=== PATIENT | male | born 1955 | race Caucasian/White ===

== ENCOUNTER 2019-06-20 08:28 | Day surgery (SDC) | payer OTHER ==
[~2019-06-20 08:28] MED LIST: Midazolam 1 MG/ML 2 ML SDV ONE; fentaNYL 100 MCG/2 ML SDV ONE
[2019-06-20] MEDS ORDERED: fentaNYL 100 MCG/2 ML SDV IV ONE ×6 (08:29→10:05)
[2019-06-20] MEDS ORDERED: Dextrose 5%-0.45% NaCl 1,000 ML IV SCH (08:30)
[2019-06-20] MEDS ORDERED: Sodium Chloride 0.9% 10 ML Syringe FLUSH SCH (08:30)
[2019-06-20] MEDS ORDERED: Benzocaine/Docusate Sodium 20-283 MG/5 ML Enema RECTAL ONE (08:45)
[2019-06-20] MEDS ORDERED: Midazolam 1 MG/ML 2 ML SDV IV ONE ×4 (09:54→09:58)
--- NOTE | 2019-06-20 12:35 | OR ---
DATE: 06/20/2019 PREOPERATIVE DIAGNOSIS: Chronic left lower quadrant abdominal pain. POSTOPERATIVE DIAGNOSIS: Chronic left lower quadrant abdominal pain. PROCEDURE: Total colonoscopy with mucosal biopsies, sigmoid x4. ANESTHESIA: Conscious sedation. SPECIMEN: Sigmoid biopsy. OPERATIVE FINDINGS: Normal colonoscopy with some scattered diverticula throughout the colon and a thick non-expandable sigmoid colon. RECOMMENDATIONS: I am not sure this would explain the patient's left lower quadrant pain, but it is in the same area. I did multiple biopsies of the sigmoid area and will have to wait for pathology to see if it shows anything. Other recommendation would be to send him off to a larger medical center for a GI and Surgery evaluation. INDICATION FOR PROCEDURE: This 64-year-old male has a significant left lower quadrant abdominal pain. PROCEDURE IN DETAIL: After adequate preparation, a colonoscope was inserted into the rectum. This was passed up easily up to the lower sigmoid colon. At that point, I actually could not get the sigmoid colon to expand. I could see the luminal opening and was able to advance the scope along this gingerly, however, the colon just simply would not expand. This went from about 20 cm to 35 cm or so and past that point the colon completely opened up and was widely patent as in a normal view. This then was able to be advanced all the way to the cecum. Along the pathway of this scope, there were multiple diverticula throughout the transverse and right colon. Ileocecal valve was identified with effluent and air coming through the valve. The bowel prep, even though only took half of it, was adequate. On withdrawal of the scope in the transverse and ascending colon, there really were no abnormalities other than the diverticula, but in the left colon again, as I passed the scope down through this, I could not again distend whatsoever the colon. This did not represent a stricture or mass formation. It just could not distend the colon. I did multiple biopsies of the mucosa in this area. Once I got down to below 20 cm of the colon, the upper rectum exam was all normal. Air was suctioned from the rectum and the scope removed. [facility] /[id number] CC: Miriam Lopez, [facility]
== END 2019-06-20 11:50 | disposition home or self-care (01) ==
LOC: DL.ENDO 08:28
PROVIDERS: ATTEND Surgery
DX: K57.30 Diverticulosis of large intestine without perforation or abscess without bleeding (principal); K63.89 Other specified diseases of intestine; K59.09 Other constipation; Z79.82 Long term (current) use of aspirin; Z79.899 Other long term (current) drug therapy
CPT/HCPCS: 45380; J3010; J7042; J2250

== ENCOUNTER 2019-08-10 14:58 | Emergency (ER) | payer MEDICAID, MEDICARE, OTHER ==
[2019-08-10] MEDS ORDERED: Sodium Chloride 0.9% 10 ML Syringe FLUSH PRN ×2 (15:39→15:41)
[2019-08-10] MEDS ORDERED: Sodium Chloride 0.9% 1,000 ML IV ONE ×3 (15:40→17:42)
[2019-08-10] MEDS ORDERED: Ondansetron 4 MG/2 ML SDV IV ONE ×2 (15:40→17:28)
[2019-08-10] MEDS ORDERED: Atropine/Diphenoxylate 0.025-2.5 MG Tab PO ONE (15:40)
[2019-08-10] MEDS ORDERED: Dicyclomine 20 MG/2 ML SDV IM ONE (15:41)
[2019-08-10] MEDS ORDERED: Piperacillin/Tazobactam 3.375 GM in Sodium Chloride 0.9% 100 ML IV ONE (16:04)
[2019-08-10 16:15] LABS: ANION GAP 19.1; CHLORIDE,CL 98 mmol/L (101-111); SODIUM,NA 134 mmol/L (135-145)
[2019-08-10] MEDS ORDERED: HYDROmorphone 1 MG/ML Syringe IVPUSH ONE (17:28)
--- NOTE | 2019-08-10 17:44 | EDM.PDOC ---
Scribed by Kassandra Molina 08/10/19 2620 for Jaswinder Mann MD ED HPI GENERAL MEDICAL PROBLEM - General Chief Complaint: General Time Seen by Provider: 08/10/19 15:25 Source of Information: Reports: Patient, EMS, EMS Notes Reviewed, RN, RN Notes Reviewed History Limitations: Reports: No Limitations - History of Present Illness INITIAL COMMENTS - FREE TEXT/NARRATIVE: Patient presents to ER by [facility] with c/o abdominal pain with uncontrollable diarrhea, nausea, and vomiting. Patient had barium CT scan ( Abd/Pelvis) 08/09/19 and has since been having diarrhea and abdominal cramping. Pt states they told him he had a partial bowel obstruction and colitis. CT report from yesterday notes left descending colitis but no obstruction. He has sigmoidoscopy scheduled with Dr. Mcknight in a few days but apparently it was cancelled and he was referred to the [facility] instead. Pt rates the pain 8/10. Nothing alleviates the pain. Movement and eating makes the pain and diarrhea worse. Onset: Gradual Duration: Constant, Getting Worse Location: Reports: Abdomen Quality: Reports: Ache, Other (Cramping) Severity: Severe Improves with: Reports: None Worsens with: Reports: Eating, Movement Associated Symptoms: Reports: No Other Symptoms Middle Abdomen Pain Score (Numeric/FACES): 6 - Related Data Allergies Allergy/AdvReac Type Severity Reaction Status Date / Time Sulfa (Sulfonamide Allergy Cannot Verified 06/20/19 08:39 Antibiotics) Remember Home Meds: Home Meds Omeprazole 20 mg PO DAILY 04/02/18 [History] Aspirin 81 mg PO DAILY 02/05/19 [History] Cholecalciferol (Vitamin D3) [Vitamin D3] 2,000 units PO DAILY 02/05/19 [History ] atorvaSTATin Calcium [Lipitor] 10 mg PO BEDTIME 02/05/19 [History] hydroCHLOROthiazide [Hydrochlorothiazide] 25 mg PO DAILY 02/05/19 [History] Lisinopril [Prinivil] 10 mg PO DAILY 05/24/19 [History] Past Medical History HEENT History: Reports: Impaired Vision Cardiovascular History: Reports: High Cholesterol, Hypertension Respiratory History: Reports: None Gastrointestinal History: Reports: Diverticulosis, GERD Genitourinary History: Reports: Prostate Disorder, Renal Calculus, Other (See Below) Other Genitourinary History: ERECTILE DYSFUNCTION Musculoskeletal History: Reports: Arthritis, Back Pain, Chronic, Neck Pain, Chronic, Other (See Below) Other Musculoskeletal History: SPINOCEREBELLAR ATAXIA; CERVICALGIA; ANTERIOR SOFT STISSUE IMPINGEMENT Neurological History: Reports: Neuropathy, Peripheral, Other (See Below) Other Neuro History: RESTLESS LEG SYNDROME; RIGHT ULNAR NEUROPATHY; ABNORMALITY OF GAIT Psychiatric History: Reports: Addiction, Anxiety, Panic Attack, Other (See Below ) Other Psychiatric History: INSOMNIA; ALCOHOL ABUSE; TOBACCO DEPENDENCE; AGORAPHOBIA Endocrine/Metabolic History: Reports: Vitamin D Deficiency Hematologic History: Reports: None Immunologic History: Reports: None Oncologic (Cancer) History: Reports: None Dermatologic History: Reports: Seborrheic Dermatitis - Infectious Disease History Infectious Disease History: Reports: Chicken Pox, Mumps - Past Surgical History Head Surgeries/Procedures: Reports: None HEENT Surgical History: Reports: Adenoidectomy, Tonsillectomy Cardiovascular Surgical History: Reports: None Respiratory Surgical History: Reports: None GI Surgical History: Reports: Colonoscopy, Other (See Below) Other GI Surgeries/Procedures: FLEXIBLE SIGMOIDOSCOPY; ABDOMINAL PAIN Male Surgical History: Reports: None Endocrine Surgical History: Reports: None Neurological Surgical History: Reports: None Musculoskeletal Surgical History: Reports: None Oncologic Surgical History: Reports: None Dermatological Surgical History: Reports: None Social & Family History - Family History Family Medical History: Noncontributory - Caffeine Use Caffeine Use: Reports: Coffee, Energy Drinks, Soda Other Caffeine Use: AVERAGE OF 1 POT COFFEE DAILY, 1 ENERGY DRINK - Living Situation & Occupation Living situation: Reports: , with Spouse ED ROS GENERAL - Review of Systems Review Of Systems: Comprehensive ROS is negative, except as noted in HPI. ED EXAM, GENERAL - Physical Exam Exam: See Below Exam Limited By: No Limitations General Appearance: Alert, Anxious, Mild Distress (Due to pain and fecal incontinence), Other (Acutely ill appearing) Eye Exam: Bilateral Eye: Normal Inspection (No scleral icterus) Nose: Normal Inspection, Normal Mucosa, No Blood Throat/Mouth: Normal Lips, Normal Oropharynx, Normal Voice, No Airway Compromise , Other (Very dry oral mucosa) Head: Atraumatic, Normocephalic Neck: Normal Inspection, Supple, Non-Tender, Full Range of Motion Respiratory/Chest: No Respiratory Distress, Lungs Clear, Normal Breath Sounds, No Accessory Muscle Use, Chest Non-Tender Cardiovascular: Regular Rate, Rhythm, No Edema, Tachycardia GI/Abdominal: Soft, No Organomegaly, No Distention, Guarding (at left abdomen), Tender (generalized abdominal tenderness, worse at LUQ and LLQ), Abnormal Bowel Sounds (Hyperactive bowel sounds). No: Rigid, Rebound (Male) Exam: Deferred Rectal (Males) Exam: Deferred Back Exam: Normal Inspection Extremities: Normal Inspection Neurological: Alert, Oriented, CN II-XII Intact, Normal Cognition, No Motor/ Sensory Deficits Psychiatric: Anxious Skin Exam: Warm, Dry, Intact, Pallor Course - Vital Signs Last Recorded V/S: Last Vital Signs Temp 97.6 F 08/10/19 16:55 Pulse 84 08/10/19 16:55 Resp 14 08/10/19 16:55 BP 90/63 08/10/19 16:55 Pulse Ox 99 08/10/19 16:55 - Orders/Labs/Meds Orders: Active Orders 24 hr Category Date Time Status Peripheral IV Care [RC] . DIRECTED Care 08/10/19 15:39 Active Peripheral IV Care [RC] . DIRECTED Care 08/10/19 15:41 Active CBC WITH AUTO DIFF [HEME] Stat Lab 08/10/19 15:34 Results CULTURE URINE [RM] Stat Lab 08/10/19 16:28 Received MANUAL DIFFERENTIAL QA/NC [HEME] Stat Lab 08/10/19 15:34 Results Sodium Chloride 0.9% [Saline Flush] Med 08/10/19 15:39 Active 10 ml FLUSH ASDIRECTED PRN Sodium Chloride 0.9% [Saline Flush] Med 08/10/19 15:41 Active 10 ml FLUSH ASDIRECTED PRN Peripheral IV Insertion Adult [OM.PC] Stat Oth 08/10/19 15:39 Ordered Peripheral IV Insertion Adult [OM.PC] Stat Oth 08/10/19 15:40 Ordered Medication Orders Sodium Chloride (Saline Flush) 10 ml FLUSH ASDIRECTED PRN PRN Reason: Keep Vein Open Last Admin: 08/10/19 15:49 Dose: 10 ml Sodium Chloride (Saline Flush) 10 ml FLUSH ASDIRECTED PRN PRN Reason: Keep Vein Open Last Admin: 08/10/19 15:50 Dose: 10 ml Labs: Laboratory Tests 12/07/19 12/07/19 12/07/19 Range/Units 15:34 15:34 15:34 WBC 25.2 H* (5.0-10.0) 10^3/uL RBC 5.04 (4.6-6.2) 10^6/uL Hgb 14.6 (14.0-18.0) g/dL Hct 42.8 (40.0-54.0) % MCV 84.9 (80-100) fL MCH 29.0 (27.0-34.0) pg MCHC 34.1 (33.0-35.0) g/dL Plt Count 296 (150-450) 10^3/uL Neut % (Auto) 90.8 H (42.2-75.2) % Lymph % (Auto) 5.7 L (20.5-50.1) % Rich % (Auto) 3.5 (2-8) % Eos % (Auto) 0.0 L (1.0-3.0) % Baso % (Auto) 0.0 (0.0-1.0) % Add Manual Diff Yes Sodium 134 L (135-145) mmol/L Potassium 4.1 (3.6-5.0) mmol/L Chloride 98 L (101-111) mmol/L Carbon Dioxide 21.0 (21.0-31.0) mmol/L Anion Gap 19.1 BUN 27 H (7-18) mg/dL Creatinine 1.3 (0.6-1.3) mg/dL Est Cr Clr Drug Dosing TNP Estimated GFR (MDRD) 55 BUN/Creatinine Ratio 20.76 Glucose 157 H (74-105) mg/dL Lactic Acid (0.5-2.2) mmol/L Calcium 9.3 (8.4-10.2) mg/dl Total Bilirubin 0.7 (0.2-1.0) mg/dL AST 25 (10-42) IU/L ALT 17 (10-60) IU/L Alkaline Phosphatase 90 (42-121) IU/L C-Reactive Protein 7.3 H (0.0-1.3) mg/dL Total Protein 7.7 (6.7-8.2) g/dl Albumin 3.5 (3.2-5.5) g/dl Globulin 4.2 Albumin/Globulin Ratio 0.83 Amylase 27 L (28-100) U/L Lipase 27 (22-51) U/L Urine Color (YELLOW) Urine Appearance (CLEAR) Urine pH (5.0-9.0) Ur Specific [place] (1.005-1.030) Urine Protein (NEGATIVE) Urine Glucose (UA) (NEGATIVE) Urine Ketones (NEGATIVE) Urine Occult Blood (NEGATIVE) Urine Nitrite (NEGATIVE) Urine Bilirubin (NEGATIVE) Urine Urobilinogen (0.2-1.0) mg/dL Ur Leukocyte Esterase (NEGATIVE) Urine RBC /HPF Urine WBC (0-5/HPF) /HPF Ur Epithelial Cells (NOT SEEN) /HPF Urine Bacteria (0-FEW/HPF) /HPF Fine Granular Casts (NOT SEEN) /LPF Urine Mucus (NOT SEEN) /LPF 08/10/19 08/10/19 Range/Units 16:11 16:28 WBC (5.0-10.0) 10^3/uL RBC (4.6-6.2) 10^6/uL Hgb (14.0-18.0) g/dL Hct (40.0-54.0) % MCV (80-100) fL MCH (27.0-34.0) pg MCHC (33.0-35.0) g/dL Plt Count (150-450) 10^3/uL Neut % (Auto) (42.2-75.2) % Lymph % (Auto) (20.5-50.1) % Rich % (Auto) (2-8) % Eos % (Auto) (1.0-3.0) % Baso % (Auto) (0.0-1.0) % Add Manual Diff Sodium (135-145) mmol/L Potassium (3.6-5.0) mmol/L Chloride (101-111) mmol/L Carbon Dioxide (21.0-31.0) mmol/L Anion Gap BUN (7-18) mg/dL Creatinine (0.6-1.3) mg/dL Est Cr Clr Drug Dosing Estimated GFR (MDRD) BUN/Creatinine Ratio Glucose (74-105) mg/dL Lactic Acid 3.4 H (0.5-2.2) mmol/L Calcium (8.4-10.2) mg/dl Total Bilirubin (0.2-1.0) mg/dL AST (10-42) IU/L ALT (10-60) IU/L Alkaline Phosphatase (42-121) IU/L C-Reactive Protein (0.0-1.3) mg/dL Total Protein (6.7-8.2) g/dl Albumin (3.2-5.5) g/dl Globulin Albumin/Globulin Ratio Amylase (28-100) U/L Lipase (22-51) U/L Urine Color Dark yellow (YELLOW) Urine Appearance Slightly cloudy (CLEAR) Urine pH 5.5 (5.0-9.0) Ur Specific [place] 1.020 (1.005-1.030) Urine Protein 30 H (NEGATIVE) Urine Glucose (UA) Negative (NEGATIVE) Urine Ketones Trace H (NEGATIVE) Urine Occult Blood Trace-intact H (NEGATIVE) Urine Nitrite Negative (NEGATIVE) Urine Bilirubin Small H (NEGATIVE) Urine Urobilinogen 1.0 (0.2-1.0) mg/dL Ur Leukocyte Esterase Small H (NEGATIVE) Urine RBC 0-5 /HPF Urine WBC 20-30 H (0-5/HPF) /HPF Ur Epithelial Cells Rare (NOT SEEN) /HPF Urine Bacteria Few (0-FEW/HPF) /HPF Fine Granular Casts Few H (NOT SEEN) /LPF Urine Mucus Few H (NOT SEEN) /LPF Meds: Medications Generic Name Dose Route Start Last Admin Trade Name Freq PRN Reason Stop Dose Admin Sodium Chloride 10 ml 08/10/19 15:39 08/10/19 15:49 Saline Flush FLUSH 10 ml ASDIRECTED PRN Administration Keep Vein Open Sodium Chloride 10 ml 08/10/19 15:41 08/10/19 15:50 Saline Flush FLUSH 10 ml ASDIRECTED PRN Administration Keep Vein Open Discontinued Medications Generic Name Dose Route Start Last Admin Trade Name Freq PRN Reason Stop Dose Admin Dicyclomine HCl 20 mg 08/10/19 15:41 08/10/19 16:01 Bentyl IM 08/10/19 15:42 20 mg ONETIME ONE Administration Diphenoxylate HCl/Atropine 1 tab 08/10/19 15:40 08/10/19 16:01 Lomotil 0.025-2.5 Mg PO 08/10/19 15:41 1 tab ONETIME ONE Administration Hydromorphone HCl 1 mg 08/10/19 17:28 Dilaudid IVPUSH 08/10/19 17:29 ONETIME ONE Sodium Chloride 1,000 mls @ 999 mls/hr 08/10/19 15:40 08/10/19 15:49 Normal Saline IV 08/10/19 16:40 999 mls/hr .BOLUS ONE Administration Sodium Chloride 1,000 mls @ 999 mls/hr 08/10/19 15:41 08/10/19 16:48 Normal Saline IV 08/10/19 16:41 999 mls/hr .BOLUS ONE Administration Piperacillin Sod/Tazobactam 100 mls @ 200 mls/hr 08/10/19 16:04 08/10/19 16: 26 Sod 3.375 gm/ Sodium Chloride IV 08/10/19 16:33 200 mls/hr ONETIME ONE Administration Ondansetron HCl 4 mg 08/10/19 15:40 08/10/19 16:01 Zofran IV 08/10/19 15:41 4 mg ONETIME ONE Administration Ondansetron HCl 4 mg 08/10/19 17:28 Zofran IV 08/10/19 17:29 ONETIME ONE - Radiology Interpretation Free Text/Narrative:: Reviewed CT scan abdomen and pelvis without IV contrast, with 2 bottles oral Redicat barium on 08/09/19 ordered by Miriam Lopez NP from [facility] with radiologist impression as follows: Pancolonic diverticulosis and inflamed appearing descending left (COLITIS?). Colonoscopy ? Abnormal prostate gland. Bilateral urolithiasis. Stable abdominal aortic aneurysm. Chronic high-grade obstructive uropathy right kidney (stone at the [facility]) UNCHANGED since April 23, 2019. - Re-Assessments/Exams Free Text/Narrative Re-Assessment/Exam: 08/10/19 17:37 Pt's BP dropped upon arrive to ER. Initially sBP 105mmHb, during triage pt was incontinent of stool with liquid diarrhea, and his blood pressure dropped to 68/ 42mmHg. Pt received IVF resuscitation with 2L NS bolus with return of BP to 90- 105/50-60s. WBC 25,200 w/left shift. Pt treated with empiric Zosyn IV. Pt now stable for transfer, with Dr. Birch accepting the pt as a direct admit to the [facility] in [place]. Pt to be transported by [facility] ground ambulance. Departure - Departure Time of Disposition: 17:24 Disposition: DC/Tfer to Acute Hospital 02 Condition: Serious Clinical Impression: Colitis, Dehydration, Diarrhea of presumed infectious origin Sepsis Qualifiers: Sepsis type: sepsis due to unspecified organism Sepsis acute organ dysfunction status: with acute organ dysfunction Severe sepsis acute organ dysfunction type : unspecified Severe sepsis shock status: with septic shock Qualified Code(s): A41.9 - Sepsis, unspecified organism; R65.21 - Severe sepsis with septic shock - Discharge Information *PRESCRIPTION DRUG MONITORING PROGRAM REVIEWED*: Not Applicable *COPY OF PRESCRIPTION DRUG MONITORING REPORT IN PATIENT NATHANAEL: Not Applicable Forms: ED Department Discharge, Interfacility Transfer EMTALA - My Orders Last 24 Hours: My Active Orders 08/10/19 15:34 CBC WITH AUTO DIFF [HEME] Stat MANUAL DIFFERENTIAL QA/NC [HEME] Stat 08/10/19 15:39 Peripheral IV Care [RC] . DIRECTED Sodium Chloride 0.9% [Saline Flush] 10 ml FLUSH ASDIRECTED PRN Peripheral IV Insertion Adult [OM.PC] Stat 08/10/19 15:40 Peripheral IV Insertion Adult [OM.PC] Stat 08/10/19 15:41 Peripheral IV Care [RC] . DIRECTED Sodium Chloride 0.9% [Saline Flush] 10 ml FLUSH ASDIRECTED PRN 08/10/19 16:28 CULTURE URINE [RM] Stat - Assessment/Plan Last 24 Hours: My Active Orders 08/10/19 15:34 CBC WITH AUTO DIFF [HEME] Stat MANUAL DIFFERENTIAL QA/NC [HEME] Stat 08/10/19 15:39 Peripheral IV Care [RC] . DIRECTED Sodium Chloride 0.9% [Saline Flush] 10 ml FLUSH ASDIRECTED PRN Peripheral IV Insertion Adult [OM.PC] Stat 08/10/19 15:40 Peripheral IV Insertion Adult [OM.PC] Stat 08/10/19 15:41 Peripheral IV Care [RC] . DIRECTED Sodium Chloride 0.9% [Saline Flush] 10 ml FLUSH ASDIRECTED PRN 08/10/19 16:28 CULTURE URINE [RM] Stat I have read and agree with the documentation that has been completed regarding this visit. By signing this record, I attest that the documentation was completed in my physical presence and is an accurate record of the encounter.
== END 2019-08-10 18:52 ==
LOC: DL.ED 14:58
DX: E86.0 Dehydration (principal); K52.9 Noninfective gastroenteritis and colitis, unspecified; A41.9 Sepsis, unspecified organism; R65.21 Severe sepsis with septic shock; I10 Essential (primary) hypertension; E78.00 Pure hypercholesterolemia, unspecified; K21.9 Gastro-esophageal reflux disease without esophagitis; M19.90 Unspecified osteoarthritis, unspecified site; F41.0 Panic disorder [episodic paroxysmal anxiety]; Z88.2 Allergy status to sulfonamides; Z79.82 Long term (current) use of aspirin; Z79.899 Other long term (current) drug therapy
CPT/HCPCS: 36415; 80053; 81001; 82150; 83605; 83690; 85025; 86140; 87086; 96361; 96365; 96372; 96375; 96376; 99285; A9270; J0500; J1170; J2405; J2543; J7030; J7050; 99284

== ENCOUNTER 2020-02-19 15:10 | Emergency (ER) | payer OTHER, MEDICARE ==
--- NOTE | 2020-02-19 16:52 | CT ---
EXAMINATION: Abdomen Pelvis wo Cont SEX: Male AGE: 65 years CLINICAL HISTORY: 65-year-old male complaining of ABDOMINAL PAIN ([facility] today revealed "small bowel obstruction"). This patient with known infrarenal abdominal aortic aneurysm significantly had "colostomy for diverticulitis" August 2019. Scan technique: Volume acquisition of data emergency unenhanced CT scan of the abdomen and pelvis obtained with the patient lying supine on the Siemens multislice scanner [facility]. All data archived in the PACS system for storage, reformatting axial/sagittal/coronal planes and study. Interpretation: Abnormal. Small bowel obstruction. 1. Colostomy RLQ abdomen. Numerous diverticula in the ipsilateral ascending right colon. No current signs of inflammatory "dirty" peritoneal fat or abscess. 2. *Abnormal dilatation multiple small bowel loops (centrally) with differential air-fluid levels i.e small bowel obstruction (SBO) pattern. Possible adhesion (obvious transition point). No intraperitoneal foreign body. 3. No abnormal abdominal or pelvic mass lesion. No mesenteric or retroperitoneal lymphadenopathy. 4. No abscess or ventral wall hernia. No ascites or free intraperitoneal air. 5. Gallbladder, unenhanced liver, stomach (small HH), spleen, pancreas and adrenal glands negative. 6. Numerous calcifications right kidney. Round low-attenuation cysts lower pole both kidneys. 7. Fusiform aneurysmal dilatation infrarenal abdominal aorta measuring 5.1 cm long and 3.6 cm diameter. 8. Lung bases clear. Normal cardiac silhouette. No pericardial or pleural effusions.
--- NOTE | 2020-02-19 16:56 | EDM.PDOC ---
ED HPI GENERAL MEDICAL PROBLEM - General Chief Complaint: Gastrointestinal Problem Stated Complaint: SMALL INTENSTIAL BLOCKAGE PER PT Time Seen by Provider: 02/19/20 16:45 Source of Information: Reports: Patient, Family History Limitations: Reports: No Limitations - History of Present Illness INITIAL COMMENTS - FREE TEXT/NARRATIVE: This 65 yo male patient reports to the ED from the [facility] due to abdominal distention, reduced appetite and an abnormal abdominal x-ray. The patient reports he has noticed symptoms over the past couple of days, but it has seemed to get much worse today. The patient does have a colostomy due to diverticula. Onset: Gradual Duration: Day(s):, Constant, Getting Worse Location: Reports: Abdomen Quality: Reports: Ache, Dull Severity: Moderate Improves with: Reports: None Worsens with: Reports: None Context: Reports: Other Associated Symptoms: Reports: No Other Symptoms Middle Abdominal Pain Score (Numeric/FACES): 5 - Related Data Allergies Allergy/AdvReac Type Severity Reaction Status Date / Time No Known Allergies Allergy Verified 02/19/20 15:55 Home Meds: Home Meds Aspirin 81 mg PO DAILY 02/05/19 [History] Cholecalciferol (Vitamin D3) [Vitamin D3] 2,000 units PO DAILY 02/05/19 [History] atorvaSTATin Calcium [Lipitor] 10 mg PO BEDTIME 02/05/19 [History] hydroCHLOROthiazide [Hydrochlorothiazide] 25 mg PO DAILY 02/05/19 [History] lisinopriL [Prinivil] 10 mg PO DAILY 05/24/19 [History] Gabapentin [Neurontin] 100 mg PO TID 02/19/20 [History] Tamsulosin [Flomax] 0.4 mg PO DAILY 02/19/20 [History] Past Medical History HEENT History: Reports: Impaired Vision Cardiovascular History: Reports: High Cholesterol, Hypertension Respiratory History: Reports: None Gastrointestinal History: Reports: Diverticulosis, GERD Genitourinary History: Reports: Prostate Disorder, Renal Calculus, Other (See Below) Other Genitourinary History: ERECTILE DYSFUNCTION Musculoskeletal History: Reports: Arthritis, Back Pain, Chronic, Neck Pain, Chronic, Other (See Below) Other Musculoskeletal History: SPINOCEREBELLAR ATAXIA; CERVICALGIA; ANTERIOR SOFT STISSUE IMPINGEMENT Neurological History: Reports: Neuropathy, Peripheral, Other (See Below) Other Neuro History: RESTLESS LEG SYNDROME; RIGHT ULNAR NEUROPATHY; ABNORMALITY OF GAIT Psychiatric History: Reports: Addiction, Anxiety, Panic Attack, Other (See Below) Other Psychiatric History: INSOMNIA; ALCOHOL ABUSE; TOBACCO DEPENDENCE; AGORAPHOBIA Endocrine/Metabolic History: Reports: Vitamin D Deficiency Hematologic History: Reports: None Immunologic History: Reports: None Oncologic (Cancer) History: Reports: None Dermatologic History: Reports: Seborrheic Dermatitis - Infectious Disease History Infectious Disease History: Reports: Chicken Pox, Mononucleosis - Past Surgical History Head Surgeries/Procedures: Reports: None HEENT Surgical History: Reports: Adenoidectomy, Tonsillectomy Cardiovascular Surgical History: Reports: None Respiratory Surgical History: Reports: None GI Surgical History: Reports: Colonoscopy, Other (See Below) Other GI Surgeries/Procedures: FLEXIBLE SIGMOIDOSCOPY; ABDOMINAL PAIN Male Surgical History: Reports: None Endocrine Surgical History: Reports: None Neurological Surgical History: Reports: None Musculoskeletal Surgical History: Reports: None Oncologic Surgical History: Reports: None Dermatological Surgical History: Reports: None Social & Family History - Family History Family Medical History: Noncontributory - Tobacco Use Smoking Status *Q: Current Every Day Smoker Years of Tobacco use: 51 Packs/Tins Daily: 0.5 - Caffeine Use Caffeine Use: Reports: Coffee Other Caffeine Use: AVERAGE OF 1 POT COFFEE DAILY, 1 ENERGY DRINK - Alcohol Use Date of Last Drink: 02/18/13 - Recreational Drug Use Recreational Drug Use: Yes Drug Use in Last 12 Months: Yes Recreational Drug Type: Reports: Marijuana/Hashish Recreational Drug Use Frequency: Daily - Living Situation & Occupation Living situation: Reports: , with Spouse ED ROS GENERAL - Review of Systems Review Of Systems: Comprehensive ROS is negative, except as noted in HPI. ED EXAM, GI/ABD - Physical Exam Exam: See Below Exam Limited By: No Limitations General Appearance: Alert, WD/WN, Moderate Distress Eyes: Bilateral: Normal Appearance, EOMI Ears: Normal External Exam, Normal Canal, Hearing Grossly Normal, Normal TMs Throat/Mouth: Normal Inspection, Normal Lips, Normal Teeth, Normal Gums, Normal Oropharynx, Normal Voice, No Airway Compromise Head: Atraumatic, Normocephalic Neck: Normal Inspection, Supple, Non-Tender, Full Range of Motion Cardiovascular: Normal Peripheral Pulses, Regular Rate, Rhythm, No Edema, No Gallop, No JVD, No Murmur, No Rub GI/Abdominal Exam: Distended, Abnormal Bowel Sounds (hypoactive) (Male) Exam: Deferred Rectal (Males) Exam: Deferred Back Exam: Normal Inspection, Full Range of Motion, NT Extremities: Normal Inspection, Normal Range of Motion, Non-Tender, Normal Capillary Refill, No Pedal Edema Neurological: Alert, Oriented, CN II-XII Intact, Normal Cognition, Normal Gait, Normal Reflexes, No Motor/Sensory Deficits Psychiatric: Normal Affect, Normal Mood Skin Exam: Warm, Dry, Intact, Normal Color, No Rash Lymphatic: No Adenopathy Course - Vital Signs Last Recorded V/S: Last Vital Signs Temp 36.8 C 02/19/20 16:13 Pulse 110 H 02/19/20 16:13 Resp 18 02/19/20 16:13 BP 113/75 02/19/20 16:13 Pulse Ox 97 02/19/20 16:13 - Orders/Labs/Meds Orders: Active Orders 24 hr Category Date Time Status NG [Gastrointestinal Tube Mgmt] [RC] ASDIRECTED Care 02/19/20 16:44 Ordered CORONAVIRUS COVID-19 RAPID PCR [[facility]] Urgent Lab 02/19/20 17:56 Received Labs: Laboratory Tests 02/19/20 02/19/20 Range/Units 16:42 16:42 WBC 9.8 (5.0-10.0) 10^3/uL RBC 4.23 L (4.6-6.2) 10^6/uL Hgb 11.4 L D (14.0-18.0) g/dL Hct 35.0 L (40.0-54.0) % MCV 82.7 (80-100) fL MCH 27.0 (27.0-34.0) pg MCHC 32.6 L (33.0-35.0) g/dL Plt Count 270 (150-450) 10^3/uL Neut % (Auto) 66.3 (42.2-75.2) % Lymph % (Auto) 24.5 (20.5-50.1) % [place] % (Auto) 6.9 (2-8) % Eos % (Auto) 2.2 (1.0-3.0) % Baso % (Auto) 0.1 (0.0-1.0) % Sodium 136 (136-145) mmol/L Potassium 3.4 L (3.5-5.1) mmol/L Chloride 99 (98-107) mmol/L Carbon Dioxide 29 (21-32) mmol/L Anion Gap 11.4 (7-13) mEq/L BUN 16 (7-18) mg/dL Creatinine 1.03 (0.70-1.30) mg/dL Est Cr Clr Drug Dosing 76.39 mL/min Estimated GFR (MDRD) > 60 BUN/Creatinine Ratio 15.5 (No establ ref range) Glucose 97 (74-99) mg/dL Calcium 9.3 (8.5-10.1) mg/dL Total Bilirubin 0.5 (0.2-1.0) mg/dL AST 13 L (15-37) U/L ALT 17 (16-63) U/L Alkaline Phosphatase 75 (46-116) U/L Total Protein 8.0 (6.4-8.2) g/dL Albumin 3.2 L (3.4-5.0) g/dL Globulin 4.8 Albumin/Globulin Ratio 0.67 Meds: Medications Discontinued Medications Generic Name Dose Route Start Last Admin Trade Name Freq PRN Reason Stop Dose Admin Lorazepam 0.5 mg 02/19/20 16:57 02/19/20 17:04 Ativan IVPUSH 02/19/20 16:58 0.5 mg ONETIME ONE Administration Departure - Departure Time of Disposition: 18:08 Disposition: DC/Tfer to Acute Hospital 02 Condition: Fair Clinical Impression: Small bowel obstruction - Discharge Information *PRESCRIPTION DRUG MONITORING PROGRAM REVIEWED*: Not Applicable *COPY OF PRESCRIPTION DRUG MONITORING REPORT IN PATIENT NATHANAEL: Not Applicable Care Plan Goals: Discussed the patient's history, examination, lab and CT results with Dr. Schumacher ([facility] in [place]). Dr. Schumacher accepted the patient for continued evaluation and management as an inpatient at the [facility] in [place]. The patient will be transported by [facility]. Sepsis Event Note (ED) - Evaluation Sepsis Screening Result: No Definite Risk - Focused Exam Vital Signs: Vital Signs Temp Pulse Resp BP Pulse Ox 02/19/20 16:13 36.8 C 110 H 18 113/75 97 - My Orders Last 24 Hours: My Active Orders 02/19/20 16:44 NG [Gastrointestinal Tube Mgmt] [RC] ASDIRECTED 02/19/20 17:56 CORONAVIRUS COVID-19 RAPID PCR [[facility]LEC] Urgent - Assessment/Plan Last 24 Hours: My Active Orders 02/19/20 16:44 NG [Gastrointestinal Tube Mgmt] [RC] ASDIRECTED 02/19/20 17:56 CORONAVIRUS COVID-19 RAPID PCR [[facility]] Urgent
[2020-02-19] MEDS ORDERED: LORazepam 2 MG/ML SDV IVPUSH ONE ×2 (16:57→18:48)
[2020-02-19 17:15] LABS: ANION GAP 11.4 mEq/L (7-13); CHLORIDE,CL 99 mmol/L (98-107); SODIUM,NA 136 mmol/L (136-145)
--- NOTE | 2020-02-19 17:24 | CR ---
PROCEDURE INFORMATION: Exam: XR Chest, 1 View Exam date and time: 02/19/2020 5:14 PM Age: 65 years old Clinical indication: Device placement; Additional info: N-g placement TECHNIQUE: Imaging protocol: XR of the chest Views: 1 view. COMPARISON: No relevant prior studies available. FINDINGS: Tubes, catheters and devices: NG tube is probably within the mid to distal stomach. The distal NG tube is not well visualized. Lungs: Over penetration severely limits evaluation of the lungs. Pleural space: Unremarkable. No pleural effusion. No pneumothorax. Heart/Mediastinum: Unremarkable. No cardiomegaly. Bones/joints: Unremarkable. IMPRESSION: NG tube is probably within the mid to distal stomach. The distal NG tube is not well visualized.
== END 2020-02-19 19:01 ==
LOC: DL.ED 15:10
DX: K56.609 Unspecified intestinal obstruction, unspecified as to partial versus complete obstruction (principal); I10 Essential (primary) hypertension; E78.00 Pure hypercholesterolemia, unspecified; M19.90 Unspecified osteoarthritis, unspecified site; F17.210 Nicotine dependence, cigarettes, uncomplicated; Z20.828 Contact with and (suspected) exposure to other viral communicable diseases; Z79.82 Long term (current) use of aspirin; Z79.899 Other long term (current) drug therapy
CPT/HCPCS: 36415; 43752; 71045; 74176; 80053; 85025; 87635; 96374; 96376; 99285; J2060; 99284; U0002

== ENCOUNTER 2021-08-10 13:25 | Emergency (ER) | payer OTHER ==
[2021-08-10] MEDS ORDERED: Sodium Chloride 0.9% 10 ML Syringe FLUSH PRN (13:29)
--- NOTE | 2021-08-10 13:29 | EDM.PDOC ---
ED HPI GENERAL MEDICAL PROBLEM - General Chief Complaint: Abdominal Pain Stated Complaint: ABDOMINAL PAIN W/DISTENTION, VOMITING Time Seen by Provider: 08/10/21 13:28 Source of Information: Reports: Patient, Old Records, RN, RN Notes Reviewed History Limitations: Reports: No Limitations - History of Present Illness INITIAL COMMENTS - FREE TEXT/NARRATIVE: Pt presents to ER by POV with c/o abdominal pain with nausea, vomiting, and distention that began about one week ago. Denies fever, chills, cough, or chest pain. Pt claims he cannot keep down any food or water, and immediately vomits after attempting to eat. Pt also has had nothing out of his ostomy bag for about 4 days. Hx of SBO. Onset: Gradual Duration: Getting Worse Location: Reports: Abdomen Quality: Reports: Ache, Pressure, Same as Previous Episode Severity: Severe Improves with: Reports: None Worsens with: Reports: Eating Associated Symptoms: Reports: No Other Symptoms - Related Data Allergies Allergy/AdvReac Type Severity Reaction Status Date / Time No Known Allergies Allergy Verified 02/19/20 15:55 Home Meds: Home Meds Aspirin 81 mg PO DAILY 02/05/19 [History] Cholecalciferol (Vitamin D3) [Vitamin D3] 2,000 units PO DAILY 02/05/19 [History] atorvaSTATin Calcium [Lipitor] 10 mg PO BEDTIME 02/05/19 [History] hydroCHLOROthiazide [Hydrochlorothiazide] 25 mg PO DAILY 02/05/19 [History] lisinopriL [Prinivil] 10 mg PO DAILY 05/24/19 [History] Gabapentin [Neurontin] 200 mg PO BID 02/19/20 [History] Sertraline [Zoloft] 100 mg PO DAILY 02/19/20 [History] Tamsulosin [Flomax] 0.4 mg PO DAILY 02/19/20 [History] Past Medical History HEENT History: Reports: Impaired Vision Cardiovascular History: Reports: High Cholesterol, Hypertension Respiratory History: Reports: None Gastrointestinal History: Reports: Diverticulosis, GERD Genitourinary History: Reports: Prostate Disorder, Renal Calculus, Other (See Below) Other Genitourinary History: ERECTILE DYSFUNCTION Musculoskeletal History: Reports: Arthritis, Back Pain, Chronic, Neck Pain, Chronic, Other (See Below) Other Musculoskeletal History: SPINOCEREBELLAR ATAXIA; CERVICALGIA; ANTERIOR SOFT STISSUE IMPINGEMENT Neurological History: Reports: Neuropathy, Peripheral, Other (See Below) Other Neuro History: RESTLESS LEG SYNDROME; RIGHT ULNAR NEUROPATHY; ABNORMALITY OF GAIT Psychiatric History: Reports: Addiction, Anxiety, Panic Attack, Other (See Below) Other Psychiatric History: INSOMNIA; ALCOHOL ABUSE; TOBACCO DEPENDENCE; AGORAPHOBIA Endocrine/Metabolic History: Reports: Vitamin D Deficiency Hematologic History: Reports: None Immunologic History: Reports: None Oncologic (Cancer) History: Reports: None Dermatologic History: Reports: Seborrheic Dermatitis - Infectious Disease History Infectious Disease History: Reports: Chicken Pox, Mononucleosis - Past Surgical History Head Surgeries/Procedures: Reports: None HEENT Surgical History: Reports: Adenoidectomy, Tonsillectomy Cardiovascular Surgical History: Reports: None Respiratory Surgical History: Reports: None GI Surgical History: Reports: Colonoscopy, Other (See Below) Other GI Surgeries/Procedures: FLEXIBLE SIGMOIDOSCOPY; ABDOMINAL PAIN Male Surgical History: Reports: None Endocrine Surgical History: Reports: None Neurological Surgical History: Reports: None Musculoskeletal Surgical History: Reports: None Oncologic Surgical History: Reports: None Dermatological Surgical History: Reports: None Social & Family History - Family History Family Medical History: No Pertinent Family History - Caffeine Use Caffeine Use: Reports: Coffee Other Caffeine Use: AVERAGE OF 1 POT COFFEE DAILY, 1 ENERGY DRINK - Living Situation & Occupation Living situation: Reports: , with Spouse ED ROS GENERAL - Review of Systems Review Of Systems: Comprehensive ROS is negative, except as noted in HPI. ED EXAM, GI/ABD - Physical Exam Exam: See Below Exam Limited By: No Limitations General Appearance: Alert, WD/WN, Mild Distress Eyes: Bilateral: Normal Appearance (No scleral icterus) Nose: Normal Inspection Throat/Mouth: Normal Voice, No Airway Compromise Head: Atraumatic, Normocephalic Neck: Normal Inspection Respiratory/Chest: No Respiratory Distress, Lungs Clear, No Accessory Muscle Use, Decreased Breath Sounds Cardiovascular: Regular Rate, Rhythm GI/Abdominal Exam: Distended, Tender (Diffusely tender), Abnormal Bowel Sounds (Hypoactive high pitched tympanic bowel sounds), Other (Empty ostomy bag). No: Guarding, Rigid, Rebound Back Exam: Normal Inspection Extremities: Normal Inspection Neurological: Alert, Oriented, Normal Cognition, No Motor/Sensory Deficits Psychiatric: Normal Mood Skin Exam: Warm, Dry, Intact, Normal Color, No Rash Course - Vital Signs Last Recorded V/S: Last Vital Signs Temp 97.6 F 12/07/21 13:18 Pulse 89 08/10/21 13:18 Resp 18 08/10/21 13:18 BP 135/94 H 08/10/21 13:18 Pulse Ox 96 08/10/21 13:18 - Orders/Labs/Meds Orders: Active Orders 24 hr Category Date Time Status Gastrointestinal Tube Mgmt [RC] ASDIRECTED Care 08/10/21 15:34 Active Peripheral IV Care [RC] . DIRECTED Care 08/10/21 13:30 Active Abdomen 1V Upright [CR] Stat Exams 08/10/21 15:34 Ordered Sodium Chloride 0.9% [Saline Flush] Med 08/10/21 13:29 Active 10 ml FLUSH ASDIRECTED PRN NG [Nasogastric Orogastric Tube Insertion] [OM.PC] Oth 08/10/21 15:33 Ordered Routine Peripheral IV Insertion Adult [OM.PC] Stat Oth 08/10/21 13:29 Ordered Medication Orders Sodium Chloride (Sodium Chloride 0.9% 10 Ml Syringe) 10 ml FLUSH ASDIRECTED PRN PRN Reason: Keep Vein Open Last Admin: 08/10/21 13:55 Dose: 10 ml Documented by: RICHIE Labs: Laboratory Tests 08/10/21 08/10/21 08/10/21 Range/Units 13:39 13:45 13:45 WBC 15.7 H (5.0-10.0) 10^3/uL RBC 4.69 (4.6-6.2) 10^6/uL Hgb 12.9 L D (14.0-18.0) g/dL Hct 38.9 L (40.0-54.0) % MCV 82.9 (80-100) fL MCH 27.5 (27.0-34.0) pg MCHC 33.2 (33.0-35.0) g/dL Plt Count 318 (150-450) 10^3/uL Neut % (Auto) 81.1 H (42.2-75.2) % Lymph % (Auto) 11.1 L (20.5-50.1) % [place] % (Auto) 7.3 (2-8) % Eos % (Auto) 0.4 L (1.0-3.0) % Baso % (Auto) 0.1 (0.0-1.0) % Sodium 133 L (136-145) mmol/L Potassium 3.4 L (3.5-5.1) mmol/L Chloride 93 L (98-107) mmol/L Carbon Dioxide 29 (21-32) mmol/L Anion Gap 14.4 H (7-13) mEq/L BUN 43 H D (7-18) mg/dL Creatinine 1.26 (0.70-1.30) mg/dL Est Cr Clr Drug Dosing 61.59 mL/min Estimated GFR (MDRD) 57 BUN/Creatinine Ratio 34.1 (No establ ref range) Glucose 107 H (70-99) mg/dL Lactic Acid (0.4-2.0) mmol/L Calcium 9.3 (8.5-10.1) mg/dL Total Bilirubin 0.8 (0.2-1.0) mg/dL AST 9 L (15-37) U/L ALT 10 L (16-63) U/L Alkaline Phosphatase 79 (46-116) U/L C-Reactive Protein 14.2 H (0.0-0.9) mg/dL Total Protein 8.7 H (6.4-8.2) g/dL Albumin 3.3 L (3.4-5.0) g/dL Globulin 5.4 Albumin/Globulin Ratio 0.61 Amylase 23 L (25-115) U/L Lipase 21 L (73-393) U/L SARS-CoV-2 RNA (KAREN) Negative (NEGATIVE) 08/10/21 Range/Units 13:45 WBC (5.0-10.0) 10^3/uL RBC (4.6-6.2) 10^6/uL Hgb (14.0-18.0) g/dL Hct (40.0-54.0) % MCV (80-100) fL MCH (27.0-34.0) pg MCHC (33.0-35.0) g/dL Plt Count (150-450) 10^3/uL Neut % (Auto) (42.2-75.2) % Lymph % (Auto) (20.5-50.1) % [place] % (Auto) (2-8) % Eos % (Auto) (1.0-3.0) % Baso % (Auto) (0.0-1.0) % Sodium (136-145) mmol/L Potassium (3.5-5.1) mmol/L Chloride (98-107) mmol/L Carbon Dioxide (21-32) mmol/L Anion Gap (7-13) mEq/L BUN (7-18) mg/dL Creatinine (0.70-1.30) mg/dL Est Cr Clr Drug Dosing mL/min Estimated GFR (MDRD) BUN/Creatinine Ratio (No establ ref range) Glucose (70-99) mg/dL Lactic Acid 1.4 (0.4-2.0) mmol/L Calcium (8.5-10.1) mg/dL Total Bilirubin (0.2-1.0) mg/dL AST (15-37) U/L ALT (16-63) U/L Alkaline Phosphatase (46-116) U/L C-Reactive Protein (0.0-0.9) mg/dL Total Protein (6.4-8.2) g/dL Albumin (3.4-5.0) g/dL Globulin Albumin/Globulin Ratio Amylase (25-115) U/L Lipase (73-393) U/L SARS-CoV-2 RNA (KAREN) (NEGATIVE) Meds: Medications Generic Name Dose Route Start Last Admin Trade Name José Miguel PRN Reason Stop Dose Admin Sodium Chloride 10 ml 08/10/21 13:29 08/10/21 13:55 Sodium Chloride 0.9% 10 Ml Syringe FLUSH 10 ml ASDIRECTED PRN Administration Keep Vein Open Discontinued Medications Generic Name Dose Route Start Last Admin Trade Name José Miguel PRN Reason Stop Dose Admin Hydromorphone HCl 1 mg 08/10/21 13:30 08/10/21 13:57 Hydromorphone 1 Mg/Ml Syringe IVPUSH 08/10/21 13:31 1 mg ONETIME ONE Administration Hydromorphone HCl 1 mg 08/10/21 15:45 08/10/21 16:21 Hydromorphone 1 Mg/Ml Syringe IVPUSH 08/10/21 15:46 1 mg ONETIME ONE Administration Sodium Chloride 1,000 mls @ 999 mls/hr 08/10/21 13:30 08/10/21 14:00 Normal Saline IV 08/10/21 14:30 999 mls/hr .BOLUS ONE Administration Iopamidol 100 ml 08/10/21 14:24 08/10/21 15:24 Iopamidol 612 Mg/Ml 100 Ml Bottle IVPUSH 08/10/21 14:25 75 ml ONETIME ONE Administration Midazolam HCl 1 mg 08/10/21 15:33 08/10/21 16:09 Midazolam 1 Mg/Ml 2 Ml Sdv IVPUSH 08/10/21 15:34 1 mg ONETIME ONE Administration Ondansetron HCl 4 mg 08/10/21 13:30 08/10/21 13:55 Ondansetron 4 Mg/2 Ml Sdv IV 08/10/21 13:31 4 mg ONETIME ONE Administration Ondansetron HCl 4 mg 08/10/21 15:46 08/10/21 16:20 Ondansetron 4 Mg/2 Ml Sdv IV 08/10/21 15:47 4 mg ONETIME ONE Administration - Radiology Interpretation Free Text/Narrative:: CT abdomen and pelvis: Colostomy (RUQ). Numerous diverticula identified in the remaining colon and focal pericolonic inflammatory "dirty" fat peritoneal fat consistent with infection in the LLQ (ruptured diverticulum). Abnormal dilatation multiple loops of small intestine line fluid levels characteristic of mechanical small bowel obstruction (SBO). Adhesions? Infrarenal abdominal aortic aneurysm (AAA); intramural thrombus (4cm W; 4.8cm L). No renal artery involvement. Asymmetrically larger right kidney with numerous calyceal calcifications (larger concentration calcification lower pole right kidney). Peripelvic cysts bilaterally (larger lower pole right kidney measures 2.9 cm: lower pole left kidney 3.5.cm). See rad report. - Re-Assessments/Exams Free Text/Narrative Re-Assessment/Exam: 08/10/21 NG tube placed by RN without complication. Placement confirmed by x-ray. Departure - Departure Time of Disposition: 16:25 Disposition: DC/Tfer to Acute Hospital 02 Condition: Fair Clinical Impression: Complete small bowel obstruction - Discharge Information *PRESCRIPTION DRUG MONITORING PROGRAM REVIEWED*: Not Applicable *COPY OF PRESCRIPTION DRUG MONITORING REPORT IN PATIENT NATHANAEL: Not Applicable Forms: ED Department Discharge, Interfacility Transfer [facility] Sepsis Event Note (ED) - Focused Exam Vital Signs: Vital Signs Temp Pulse Resp BP Pulse Ox 08/10/21 13:18 97.6 F 89 18 135/94 H 96 - My Orders Last 24 Hours: My Active Orders 08/10/21 13:29 Sodium Chloride 0.9% [Saline Flush] 10 ml FLUSH ASDIRECTED PRN Peripheral IV Insertion Adult [OM.PC] Stat 08/10/21 13:30 Peripheral IV Care [RC] . DIRECTED 08/10/21 15:33 NG [Nasogastric Orogastric Tube Insertion] [OM.PC] Routine 08/10/21 15:34 Gastrointestinal Tube Mgmt [RC] ASDIRECTED Abdomen 1V Upright [CR] Stat - Assessment/Plan Last 24 Hours: My Active Orders 08/10/21 13:29 Sodium Chloride 0.9% [Saline Flush] 10 ml FLUSH ASDIRECTED PRN Peripheral IV Insertion Adult [OM.PC] Stat 08/10/21 13:30 Peripheral IV Care [RC] . DIRECTED 08/10/21 15:33 NG [Nasogastric Orogastric Tube Insertion] [OM.PC] Routine 08/10/21 15:34 Gastrointestinal Tube Mgmt [RC] ASDIRECTED Abdomen 1V Upright [CR] Stat
[2021-08-10] MEDS ORDERED: Ondansetron 4 MG/2 ML SDV IV ONE ×2 (13:30→15:46)
[2021-08-10] MEDS ORDERED: Sodium Chloride 0.9% 1,000 ML IV ONE (13:30)
[2021-08-10] MEDS ORDERED: HYDROmorphone 1 MG/ML Syringe IVPUSH ONE ×3 (13:30→17:14)
[2021-08-10 14:19] LABS: ANION GAP 14.4 mEq/L (7-13)
[2021-08-10] MEDS ORDERED: Iopamidol 612 MG/ML 100 ML Bottle IVPUSH ONE (14:24)
[2021-08-10] MEDS ORDERED: Midazolam 1 MG/ML 2 ML SDV IVPUSH ONE (15:33)
--- NOTE | 2021-08-10 15:53 | CT ---
EXAMINATION: Abdomen Pelvis w Cont SEX: Male AGE: 66 years CLINICAL HISTORY: 66-year-old male 180 pound smoker with history of AAA, kidney stones, colon surgery and small bowel obstruction (SBO) who presents now with pain, abdominal distention and vomiting. Colostomy RUQ. Mildly elevated WBC (15,700). Scan technique: Volume acquisition of data emergency CT scan of the abdomen and pelvis obtained without oral contrast but during/after intravenous infusion 75 cc nonionic Isovue contrast at 35 cc/s via injector while patient was lying supine on the Siemens multislice scanner [place], [place]. All data archived in the PACS system for storage, reformatting axial/sagittal/coronal planes and study. Interpretation: Abnormal. 1. *Colostomy (RUQ). Numerous diverticula identified in the remaining colon and focal pericolonic inflammatory "dirty" peritoneal fat consistent with infection in the LLQ (ruptured diverticulum?). 2. *Abnormal dilatation multiple loops of small intestine line fluid levels characteristic of mechanical small bowel obstruction (SBO). Adhesions? 3. Infrarenal abdominal aortic aneurysm (AAA); intramural thrombus (4 cm W; 4.8 cm L). No renal artery involvement. 4. Asymmetrically larger right kidney with numerous calyceal calcifications (largest concentration calcification lower pole right kidney). Peripelvic cysts bilaterally (largest lower pole right kidney measures 2.9 cm; lower pole left kidney 3.5 cm). 5. No pelvic or abdominal mass lesion. No mesenteric or retroperitoneal lymphadenopathy. No ascites or free air. 6. Lung bases clear. Normal cardiac silhouette. No pericardial or pleural effusions.
--- NOTE | 2021-08-10 16:29 | CR ---
EXAMINATION: Chest 1V Frontal SEX: Male AGE: 66 years CLINICAL HISTORY: 66-year-old male with small bowel obstruction. NG tube placement (ID if the tube is coiled). INTERPRETATION: Satisfactory midline NG tube with the tip lying in the left upper quadrant (presumably stomach) abdomen. Oral/hypo-pharynx not included on this film. Normal cardiac silhouette. No vascular congestion, pleural effusion or alveolar infiltrates. No pneumothorax, pneumomediastinum, or free subdiaphragmatic air. Numerous calcifications right kidney.
== END 2021-08-10 17:35 ==
LOC: DL.ED 13:25
DX: K56.601 Complete intestinal obstruction, unspecified as to cause (principal); R11.2 Nausea with vomiting, unspecified; J44.9 Chronic obstructive pulmonary disease, unspecified; E78.00 Pure hypercholesterolemia, unspecified; I10 Essential (primary) hypertension; K21.9 Gastro-esophageal reflux disease without esophagitis; Z79.82 Long term (current) use of aspirin; Z79.899 Other long term (current) drug therapy; Z20.822 Contact with and (suspected) exposure to COVID-19
CPT/HCPCS: 36415; 43752; 71045; 74177; 80053; 82150; 83605; 83690; 85025; 86140; 87635; 96374; 96375; 96376; 99285; J1170; J2250; J2405; J7030; Q9967; U0002

== ENCOUNTER 2021-10-03 10:07 | Emergency (ER) | payer OTHER ==
[2021-10-03] MEDS ORDERED: Ondansetron 4 MG/2 ML SDV IV ONE (10:33)
[2021-10-03] MEDS ORDERED: Sodium Chloride 0.9% 10 ML Syringe FLUSH PRN (10:34)
[2021-10-03] MEDS ORDERED: HYDROmorphone 1 MG/ML Syringe IVPUSH ONE (10:38)
[2021-10-03] MEDS ORDERED: HYDROmorphone 1 MG/ML Syringe ONE (10:38)
[2021-10-03] MEDS ORDERED: Sodium Chloride 0.9% 1,000 ML IV ONE (10:38)
[2021-10-03 11:19] LABS: ANION GAP 11.5 mEq/L (7-13); CHLORIDE,CL 94 mmol/L (98-107); SODIUM,NA 132 mmol/L (136-145)
[2021-10-03] MEDS ORDERED: Iopamidol 612 MG/ML 100 ML Bottle IVPUSH ONE (11:40)
[2021-10-03] MEDS ORDERED: Midazolam 1 MG/ML 2 ML SDV IVPUSH ONE (12:07)
[2021-10-03 13:12] LABS: CORONAVIRUS COVID-19 NAA NEGATIVE (NEGATIVE); RESPIRATORY SYNCYTIAL VIR NAA NEGATIVE (NEGATIVE)
== END 2021-10-03 13:29 ==
LOC: DL.ED 10:07
DX: K56.609 Unspecified intestinal obstruction, unspecified as to partial versus complete obstruction (principal); E78.00 Pure hypercholesterolemia, unspecified; I10 Essential (primary) hypertension; Z79.82 Long term (current) use of aspirin; Z79.899 Other long term (current) drug therapy; Z20.822 Contact with and (suspected) exposure to COVID-19
CPT/HCPCS: 0241U; 36415; 43752; 71045; 74018; 74177; 80053; 82150; 83605; 83690; 85025; 86140; 96374; 96375; 99285; 99285-25; J1170; J2250; J2405; J7030; Q9967

== ENCOUNTER 2021-11-30 18:41 | Emergency (ER) | payer OTHER ==
[2021-11-30] MEDS ORDERED: HYDROmorphone 1 MG/ML Syringe IVPUSH ONE (20:26)
[2021-11-30] MEDS ORDERED: Ondansetron 4 MG/2 ML SDV IVPUSH ONE (20:26)
[2021-11-30 20:55] LABS: CHLORIDE,CL 96 mmol/L (98-107); SODIUM,NA 137 mmol/L (136-145)
[2021-11-30] MEDS ORDERED: Iopamidol 612 MG/ML 100 ML Bottle IVPUSH ONE (20:56)
[2021-11-30 21:49] LABS: CORONAVIRUS COVID-19 NAA NEGATIVE (NEGATIVE)
[2021-11-30] MEDS ORDERED: Sodium Chloride 0.9% 1,000 ML IV ONE (22:21)
[2021-11-30] MEDS ORDERED: Piperacillin/Tazobactam 3.375 GM in Sodium Chloride 0.9% 100 ML IV ONE (22:21)
[2021-11-30] MEDS ORDERED: HYDROmorphone 0.5 MG/0.5 ML Syringe IVPUSH ONE (23:22)
== END 2021-12-01 00:10 ==
LOC: DL.ED 18:41
DX: N17.9 Acute kidney failure, unspecified (principal); K56.609 Unspecified intestinal obstruction, unspecified as to partial versus complete obstruction; E78.00 Pure hypercholesterolemia, unspecified; I10 Essential (primary) hypertension; Z79.82 Long term (current) use of aspirin; Z79.899 Other long term (current) drug therapy; Z72.0 Tobacco use; Z20.822 Contact with and (suspected) exposure to COVID-19
CPT/HCPCS: 0240U; 36415; 43752; 71045; 74176; 80053; 81001; 82150; 83605; 83690; 85025; 87040; 96365; 96375; 96376; 99285; J1170; J2405; J2543; J7030; 99284

== ENCOUNTER 2021-12-30 11:08 | Emergency (ER) | payer OTHER ==
[2021-12-30] MEDS ORDERED: Sodium Chloride 0.9% 1,000 ML IV ONE ×2 (11:45→16:22)
[2021-12-30] MEDS ORDERED: Ondansetron 4 MG/2 ML SDV IVPUSH ONE ×2 (11:45→16:22)
[2021-12-30] MEDS ORDERED: HYDROmorphone 1 MG/ML Syringe IVPUSH ONE ×3 (11:45→16:22)
[2021-12-30] MEDS ORDERED: Iopamidol 612 MG/ML 100 ML Bottle IVPUSH ONE (12:19)
[2021-12-30 12:39] LABS: ANION GAP 13.8 mEq/L (7-13); CHLORIDE,CL 94 mmol/L (98-107); SODIUM,NA 134 mmol/L (136-145)
[2021-12-30] MEDS ORDERED: Metoclopramide 10 MG/2 ML SDV IVPUSH ONE (14:01)
== END 2021-12-30 17:10 ==
LOC: DL.ED 11:08
DX: N20.1 Calculus of ureter (principal); N13.9 Obstructive and reflux uropathy, unspecified; K56.609 Unspecified intestinal obstruction, unspecified as to partial versus complete obstruction; E78.00 Pure hypercholesterolemia, unspecified; I10 Essential (primary) hypertension; Z79.82 Long term (current) use of aspirin; Z79.899 Other long term (current) drug therapy; Z20.822 Contact with and (suspected) exposure to COVID-19
CPT/HCPCS: 36415; 71045; 74018; 74177; 80053; 81001; 82150; 83605; 83690; 85025; 86140; 87040; 87086; 87186; 96374; 96375; 96376; 99284; 99285-25; J1170; J2405; J2765; J7030; Q9967; U0002

== ENCOUNTER 2022-01-30 11:39 | Emergency (ER) | payer OTHER ==
[2022-01-30] MEDS ORDERED: Amoxicillin/Clavulanate K 875-125 MG Tab PO ONE (11:40)
[2022-01-30] MEDS ORDERED: Acetaminophen/HYDROcodone 325-5 MG Tab PO ONE (11:40)
[2022-01-30] MEDS ORDERED: HYDROmorphone 1 MG/ML Syringe IVPUSH ONE (12:13)
[2022-01-30] MEDS ORDERED: Ondansetron 4 MG/2 ML SDV IVPUSH ONE (12:13)
[2022-01-30 13:16] LABS: ANION GAP 14.1 mEq/L (7-13); CHLORIDE,CL 103 mmol/L (98-107); SODIUM,NA 137 mmol/L (136-145)
[2022-01-30] MEDS ORDERED: Sodium Chloride 0.9% 1,000 ML IV ONE (13:33)
[2022-01-30] MEDS ORDERED: Iopamidol 612 MG/ML 100 ML Bottle IVPUSH ONE (14:16)
[2022-01-30] MEDS ORDERED: Acetaminophen/HYDROcodone 325-5 MG Tab ONE (17:12)
[2022-01-30] MEDS ORDERED: Amoxicillin/Clavulanate K 875-125 MG Tab ONE (17:12)
== END 2022-01-30 17:27 | disposition home or self-care (01) ==
LOC: DL.ED 11:39
DX: N20.0 Calculus of kidney (principal); K94.03 Colostomy malfunction; I71.4 Abdominal aortic aneurysm, without rupture; K52.9 Noninfective gastroenteritis and colitis, unspecified; K63.2 Fistula of intestine; E78.00 Pure hypercholesterolemia, unspecified; I10 Essential (primary) hypertension; K21.9 Gastro-esophageal reflux disease without esophagitis; Z79.82 Long term (current) use of aspirin; Z79.899 Other long term (current) drug therapy
CPT/HCPCS: 36415; 74177; 80053; 81001; 83605; 85025; 86140; 96361; 96374; 96375; 99284; A9270; J1170; J2405; J7030; Q9967

== ENCOUNTER 2022-02-20 10:41 | Emergency (ER) | payer OTHER | END 2022-02-20 11:32 | disposition left against medical advice (07) | LOC: DL.ED 10:41 | DX: R10.32 Left lower quadrant pain (principal); E78.00 Pure hypercholesterolemia, unspecified; I10 Essential (primary) hypertension; K21.9 Gastro-esophageal reflux disease without esophagitis; Z79.82 Long term (current) use of aspirin; Z79.899 Other long term (current) drug therapy | CPT/HCPCS: 99283 ==

== ENCOUNTER 2022-03-12 11:54 | Emergency (ER) | payer OTHER ==
[2022-03-12] MEDS ORDERED: Sodium Chloride 0.9% 1,000 ML IV ONE (14:39)
[2022-03-12] MEDS ORDERED: HYDROmorphone 1 MG/ML Syringe IVPUSH ONE ×3 (14:39→18:33)
[2022-03-12] MEDS ORDERED: Ondansetron 4 MG/2 ML SDV IVPUSH ONE (14:39)
[2022-03-12] MEDS ORDERED: Iopamidol 612 MG/ML 100 ML Bottle IVPUSH ONE (15:16)
[2022-03-12 15:20] LABS: ANION GAP 13.2 mEq/L (7-13); CHLORIDE,CL 103 mmol/L (98-107); SODIUM,NA 140 mmol/L (136-145)
[2022-03-12 15:22] LABS: ESTIMATED GFR 80 mL/min (>=60)
[2022-03-12 16:51] LABS: AMPHETAMINES,URINE NEGATIVE (NEGATIVE); BARBITURATES,URINE NEGATIVE (NEGATIVE); BENZODIAZEPINE,URINE NEGATIVE (NEGATIVE); MDMA (ECSTASY), URINE NEGATIVE (NEGATIVE); METHADONE,URINE NEGATIVE (NEGATIVE); METHAMPHETAMINES,URINE NEGATIVE (NEGATIVE); OPIATES,URINE POSITIVE (NEGATIVE); OXYCODONE,URINE NEGATIVE (NEGATIVE); PHENCYCLIDINE,URINE NEGATIVE (NEGATIVE); TCA,URINE NEGATIVE (NEGATIVE)
[2022-03-12] MEDS ORDERED: Piperacillin/Tazobactam 3.375 GM in Sodium Chloride 0.9% 100 ML IV ONE (17:03)
== END 2022-03-12 19:07 ==
LOC: DL.ED 11:54
DX: K91.89 Other postprocedural complications and disorders of digestive system (principal); K56.699 Other intestinal obstruction unspecified as to partial versus complete obstruction; N20.0 Calculus of kidney; K63.2 Fistula of intestine; I10 Essential (primary) hypertension; E78.00 Pure hypercholesterolemia, unspecified; Z79.899 Other long term (current) drug therapy
CPT/HCPCS: 36415; 74177; 80053; 80305-QW; 80307; 81001; 82150; 83605; 83690; 83735; 85025; 86140; 87040; 96361; 96365; 96367; 96375; 96376; 99284; 99285-25; J1170; J2405; J2543; J3370; J7030; J7050; Q9967

== ENCOUNTER 2022-03-21 19:47 | Inpatient (IN) | payer OTHER ==
[2022-03-21] MEDS ORDERED: Sodium Chloride 0.9% 1,000 ML IV ONE (19:59)
[2022-03-21] MEDS ORDERED: Ondansetron 4 MG/2 ML SDV IVPUSH ONE (19:59)
[2022-03-21] MEDS ORDERED: HYDROmorphone 1 MG/ML Syringe IVPUSH ONE (20:00)
[2022-03-21 20:32] LABS: ANION GAP 12.9 mEq/L (7-13); CHLORIDE,CL 106 mmol/L (98-107); SODIUM,NA 141 mmol/L (136-145)
[2022-03-21 20:38] LABS: ESTIMATED GFR 97 mL/min (>=60)
[2022-03-21] MEDS ORDERED: Iopamidol 612 MG/ML 100 ML Bottle IVPUSH ONE (21:14)
[2022-03-21] MEDS ORDERED: cefTRIAXone 1 GM in Sodium Chloride 0.9% 50 ML IV ONE (23:44)
[2022-03-21] MEDS: Sodium Chloride 0.9% 1,000 ML IV ONE (23:54)
[2022-03-22] MEDS ORDERED: Acetaminophen 650 MG Supp RECTAL PRN (00:52)
[2022-03-22] MEDS ORDERED: Albuterol/Ipratropium 3.0-0.5 MG/3 ML Neb Soln NEB PRN (00:52)
[2022-03-22] MEDS ORDERED: HYDROmorphone 0.5 MG/0.5 ML Syringe IVPUSH PRN (00:52)
[2022-03-22] MEDS ORDERED: Ondansetron 4 MG/2 ML SDV IVPUSH PRN (00:52)
[2022-03-22] MEDS ORDERED: diphenhydrAMINE 50 MG/ML SDV IVPUSH PRN (00:56)
[2022-03-22] MEDS ORDERED: Flumazenil 0.1 MG/ML 5 ML MDV IVPUSH PRN (00:58)
[2022-03-22] MEDS ORDERED: LORazepam 2 MG/ML SDV IVPUSH PRN ×2 (00:58→10:30)
[2022-03-22] MEDS ORDERED: HYDROmorphone 1 MG/ML Syringe IVPUSH PRN (01:13)
[2022-03-22] MEDS: Morphine 2 MG/ML SYRINGE IVPUSH PRN ×2 (06:18→23:36)
[2022-03-22] MEDS ORDERED: Metoclopramide 10 MG/2 ML SDV IVPUSH ONE (07:34)
[2022-03-22 07:55] LABS: ANION GAP 11.9 mEq/L (7-13)
[2022-03-22] MEDS: metroNIDAZOLE/Normal Saline 500 MG in Premix Bag 100 BAG IV SCH ×3 (08:47→23:43)
[2022-03-22] MEDS: Sodium Chloride 0.9% 1,000 ML IV ONE (09:05)
[2022-03-22] MEDS: Pantoprazole 40 MG Vial IVPUSH SCH ×2 (09:36→20:16)
[2022-03-22] MEDS: Nicotine 14 MG/24 Hr Patch TRDERM SCH (09:44)
[2022-03-22] MEDS: Ketorolac 30 MG/ML SDV IVPUSH PRN (10:26)
[2022-03-22] MEDS: cefTRIAXone 1 GM in Sodium Chloride 0.9% 50 ML IV SCH (10:26)
[2022-03-22] MEDS: Metoclopramide 10 MG/2 ML SDV IVPUSH SCH ×3 (12:00→23:52)
[2022-03-22] MEDS: HYDROmorphone 1 MG/ML Syringe IVPUSH PRN (20:10)
[2022-03-22] MEDS: Sodium Chloride 0.9% 10 ML Syringe FLUSH PRN (23:35)
[2022-03-23] MEDS: Sodium Chloride 0.9% 10 ML Syringe FLUSH PRN (06:40)
[2022-03-23] MEDS: Metoclopramide 10 MG/2 ML SDV IVPUSH SCH (06:41)
[2022-03-23] MEDS: Ketorolac 30 MG/ML SDV IVPUSH PRN (06:45)
[2022-03-23] MEDS: metroNIDAZOLE/Normal Saline 500 MG in Premix Bag 100 BAG IV SCH (08:05)
[2022-03-23] MEDS: Pantoprazole 40 MG Vial IVPUSH SCH (08:07)
[2022-03-23] MEDS: Nicotine 14 MG/24 Hr Patch TRDERM SCH (08:12)
[2022-03-23] MEDS ORDERED: Metoclopramide 10 MG/2 ML SDV IVPUSH PRN (08:49)
[2022-03-23 09:06] LABS: ANION GAP 11.7 mEq/L (7-13)
[2022-03-23] MEDS: HYDROmorphone 1 MG/ML Syringe IVPUSH PRN (09:27)
[2022-03-23] MEDS: cefTRIAXone 1 GM in Sodium Chloride 0.9% 50 ML IV SCH (09:34)
== END 2022-03-23 14:40 | disposition home or self-care (01) | DRG 389 ==
LOC: DL.ED 19:47 → DL.MS 23:45
PROVIDERS: ADMIT Internal Medicine; ATTEND Internal Medicine
DX: K56.609 Unspecified intestinal obstruction, unspecified as to partial versus complete obstruction (principal); K56.600 Partial intestinal obstruction, unspecified as to cause; N30.01 Acute cystitis with hematuria; F17.210 Nicotine dependence, cigarettes, uncomplicated; E78.00 Pure hypercholesterolemia, unspecified; K21.9 Gastro-esophageal reflux disease without esophagitis; M19.90 Unspecified osteoarthritis, unspecified site; Z20.822 Contact with and (suspected) exposure to COVID-19; D64.9 Anemia, unspecified; E88.09 Other disorders of plasma-protein metabolism, not elsewhere classified; E86.0 Dehydration; I10 Essential (primary) hypertension; E78.5 Hyperlipidemia, unspecified; H54.7 Unspecified visual loss; I71.4 Abdominal aortic aneurysm, without rupture; R16.1 Splenomegaly, not elsewhere classified; K43.5 Parastomal hernia without obstruction or gangrene; E55.9 Vitamin D deficiency, unspecified; G25.81 Restless legs syndrome; G62.9 Polyneuropathy, unspecified; G89.29 Other chronic pain; M54.2 Cervicalgia; M54.9 Dorsalgia, unspecified; L21.9 Seborrheic dermatitis, unspecified; G47.00 Insomnia, unspecified; N52.9 Male erectile dysfunction, unspecified; F41.9 Anxiety disorder, unspecified; Z93.3 Colostomy status; Z79.82 Long term (current) use of aspirin; Z79.899 Other long term (current) drug therapy; Z87.442 Personal history of urinary calculi; Z90.89 Acquired absence of other organs; T40.605A Adverse effect of unspecified narcotics, initial encounter; T42.4X5A Adverse effect of benzodiazepines, initial encounter
CPT/HCPCS: 36415; 74177; 80053; 81001; 82150; 83605; 83690; 84145; 85025; 86140; 87086; 96361; 96375; 99285; J1170; J2405; J7030; Q9967; 83735; 96365; 99222; 99232; 99238; A9270-GY; C9113; J0696; J1885; J2060; J2270; J2765; J3490; U0002

== ENCOUNTER 2022-04-20 16:32 | Inpatient (IN) | payer OTHER ==
[2022-04-20] MEDS ORDERED: Sodium Chloride 0.9% 10 ML Syringe FLUSH PRN (16:43)
[2022-04-20] MEDS ORDERED: HYDROmorphone 0.5 MG/0.5 ML Syringe IVPUSH ONE (16:57)
[2022-04-20] MEDS ORDERED: Sodium Chloride 0.9% 1,000 ML IV ONE (16:57)
[2022-04-20] MEDS ORDERED: Ondansetron 4 MG/2 ML SDV IVPUSH ONE (16:57)
[2022-04-20 17:44] LABS: ANION GAP 10.2 mEq/L (7-13)
[2022-04-20] MEDS ORDERED: HYDROmorphone 1 MG/ML Syringe IVPUSH ONE (19:49)
[2022-04-20] MEDS ORDERED: Zolpidem 5 MG Tab PO PRN (20:06)
[2022-04-20] MEDS ORDERED: Albuterol/Ipratropium 3.0-0.5 MG/3 ML Neb Soln NEB PRN (20:06)
[2022-04-20] MEDS ORDERED: Metoclopramide 10 MG/2 ML SDV IVPUSH ONE (20:09)
[2022-04-20] MEDS: Dextrose 5%-0.9% NaCl with KCl 1,000 ML IV SCH (20:38)
[2022-04-20] MEDS ORDERED: Flumazenil 0.1 MG/ML 5 ML MDV IVPUSH PRN (20:43)
[2022-04-20] MEDS ORDERED: LORazepam 2 MG/ML SDV IVPUSH PRN (20:43)
[2022-04-20] MEDS ORDERED: hydrALAZINE 20 MG/ML SDV IVPUSH PRN (20:43)
[2022-04-20] MEDS ORDERED: Metoprolol Tartrate 5 MG/5 ML SDV IVPUSH PRN (20:43)
[2022-04-20] MEDS: Metoprolol Succinate 50 MG Tab.ER PO SCH (22:02)
[2022-04-20] MEDS: Tamsulosin 0.4 MG Cap.ER PO SCH (22:03)
[2022-04-20] MEDS: Pantoprazole 40 MG Vial IVPUSH SCH (22:03)
[2022-04-21] MEDS: HYDROmorphone 0.5 MG/0.5 ML Syringe IVPUSH PRN ×8 (01:35→22:51)
[2022-04-21] MEDS: Nicotine 21 MG/24 Hr Patch TRDERM PRN (04:37)
[2022-04-21] MEDS: Metoclopramide 10 MG/2 ML SDV IVPUSH SCH ×3 (06:02→17:42)
[2022-04-21 07:15] LABS: ANION GAP 10.1 mEq/L (7-13)
[2022-04-21] MEDS: Pantoprazole 40 MG Vial IVPUSH SCH ×2 (09:13→20:12)
[2022-04-21] MEDS: Metoprolol Succinate 50 MG Tab.ER PO SCH ×2 (09:33→20:12)
[2022-04-21] MEDS: Ketorolac 30 MG/ML SDV IVPUSH PRN ×2 (13:47→22:01)
[2022-04-21] MEDS: Dextrose 5%-0.9% NaCl with KCl 1,000 ML IV SCH (17:29)
[2022-04-21] MEDS: Tamsulosin 0.4 MG Cap.ER PO SCH (20:11)
[2022-04-22] MEDS: Metoclopramide 10 MG/2 ML SDV IVPUSH SCH ×2 (00:58→05:59)
[2022-04-22] MEDS: HYDROmorphone 0.5 MG/0.5 ML Syringe IVPUSH PRN ×7 (00:58→19:31)
[2022-04-22] MEDS: Nicotine 21 MG/24 Hr Patch TRDERM PRN (06:01)
[2022-04-22 07:22] LABS: ANION GAP 12.2 mEq/L (7-13)
[2022-04-22] MEDS: Pantoprazole 40 MG Vial IVPUSH SCH (08:14)
[2022-04-22] MEDS: Metoprolol Succinate 50 MG Tab.ER PO SCH (08:14)
[2022-04-22] MEDS: Ketorolac 30 MG/ML SDV IVPUSH PRN (08:15)
== END 2022-04-22 19:45 | disposition home or self-care (01) | DRG 392 ==
LOC: DL.ED 16:32 → DL.MS 18:36
PROVIDERS: ADMIT Internal Medicine; ATTEND Internal Medicine
DX: K56.609 Unspecified intestinal obstruction, unspecified as to partial versus complete obstruction (principal); K59.03 Drug induced constipation; K56.50 Intestinal adhesions [bands], unspecified as to partial versus complete obstruction; T40.605A Adverse effect of unspecified narcotics, initial encounter; I10 Essential (primary) hypertension; R73.9 Hyperglycemia, unspecified; D64.9 Anemia, unspecified; R26.89 Other abnormalities of gait and mobility; M19.90 Unspecified osteoarthritis, unspecified site; R41.9 Unspecified symptoms and signs involving cognitive functions and awareness; H54.7 Unspecified visual loss; E78.5 Hyperlipidemia, unspecified; K21.9 Gastro-esophageal reflux disease without esophagitis; Z20.822 Contact with and (suspected) exposure to COVID-19; K57.90 Diverticulosis of intestine, part unspecified, without perforation or abscess without bleeding; G25.81 Restless legs syndrome; G62.9 Polyneuropathy, unspecified; M54.9 Dorsalgia, unspecified; M54.2 Cervicalgia; G89.29 Other chronic pain; G47.00 Insomnia, unspecified; F41.0 Panic disorder [episodic paroxysmal anxiety]; F17.210 Nicotine dependence, cigarettes, uncomplicated; E78.00 Pure hypercholesterolemia, unspecified; F10.10 Alcohol abuse, uncomplicated; E55.9 Vitamin D deficiency, unspecified; Z79.82 Long term (current) use of aspirin; Z98.890 Other specified postprocedural states; Z93.3 Colostomy status; Z79.899 Other long term (current) drug therapy
CPT/HCPCS: 36415; 74018; 80048; 80053; 83605; 83735; 85025; 86140; 87040; 87077; 87186; 96361; 96374; 96375; 99284; 99284-25; A9270-GY; C9113; J1170; J1885; J2405; J2765; J3480; J3490; J7030; U0002

== ENCOUNTER 2022-06-13 09:10 | Emergency (ER) | payer OTHER, MEDICARE ==
[2022-06-13] MEDS ORDERED: Ondansetron 4 MG/2 ML SDV IM ONE (22:27)
[2022-06-13] MEDS ORDERED: HYDROmorphone 1 MG/ML Syringe IV ONE (22:30)
[2022-06-13] MEDS ORDERED: Iopamidol 612 MG/ML 100 ML Bottle IV ONE (23:32)
[2022-06-14] MEDS ORDERED: HYDROmorphone 1 MG/ML Syringe IV ONE ×3 (02:05→08:00)
[2022-06-14] MEDS ORDERED: Ondansetron 4 MG/2 ML SDV IV ONE (02:15)
[2022-07-08 14:55] LABS: ANION GAP 14.4 mEq/L (7-13); CHLORIDE,CL 103 mmol/L (98-107); ESTIMATED GFR 99 mL/min (>=60); SODIUM,NA 139 mmol/L (136-145)
== END 2022-06-14 08:00 | disposition home or self-care (01) ==
LOC: DL.ED 09:10
DX: G89.18 Other acute postprocedural pain (principal); R10.32 Left lower quadrant pain
CPT/HCPCS: 36415; 74176; 74177; 80053; 81001; 82150; 83605; 83690; 85025; 86140; 96374; 96375; 96376; 99284-25; J1170; J2405; Q9967

== ENCOUNTER 2022-06-25 20:41 | Inpatient (IN) | payer OTHER ==
[2022-06-25] MEDS ORDERED: Sodium Chloride 0.9% 10 ML Syringe FLUSH PRN (20:45)
[2022-06-25] MEDS ORDERED: Ondansetron 4 MG/2 ML SDV ONE (20:53)
[2022-06-25] MEDS ORDERED: Ondansetron 4 MG/2 ML SDV IVPUSH ONE (21:00)
[2022-06-25] MEDS ORDERED: HYDROmorphone 0.5 MG/0.5 ML Syringe IVPUSH ONE (21:16)
[2022-06-25 21:37] LABS: ANION GAP 13.9 mEq/L (7-13); CHLORIDE,CL 100 mmol/L (98-107); SODIUM,NA 137 mmol/L (136-145)
[2022-06-25 21:38] LABS: ESTIMATED GFR 81 mL/min (>=60)
[2022-06-25] MEDS ORDERED: Iopamidol 612 MG/ML 100 ML Bottle IVPUSH ONE (21:49)
[2022-06-25 23:42] LABS: AMPHETAMINES,URINE NEGATIVE (NEGATIVE); BARBITURATES,URINE NEGATIVE (NEGATIVE); BENZODIAZEPINE,URINE NEGATIVE (NEGATIVE); MDMA (ECSTASY), URINE NEGATIVE (NEGATIVE); METHADONE,URINE NEGATIVE (NEGATIVE); METHAMPHETAMINES,URINE NEGATIVE (NEGATIVE); OPIATES,URINE POSITIVE (NEGATIVE); OXYCODONE,URINE NEGATIVE (NEGATIVE); PHENCYCLIDINE,URINE NEGATIVE (NEGATIVE); TCA,URINE NEGATIVE (NEGATIVE)
[2022-06-26] MEDS ORDERED: HYDROmorphone 0.5 MG/0.5 ML Syringe IVPUSH ONE (00:01)
[2022-06-26] MEDS ORDERED: Ondansetron 4 MG/2 ML SDV IVPUSH ONE (00:01)
[2022-06-26] MEDS ORDERED: Ketorolac 30 MG/ML SDV IVPUSH PRN (00:07)
[2022-06-26] MEDS ORDERED: Acetaminophen 650 MG Supp RECTAL PRN (00:07)
[2022-06-26] MEDS ORDERED: Albuterol/Ipratropium 3.0-0.5 MG/3 ML Neb Soln NEB PRN (00:07)
[2022-06-26] MEDS ORDERED: HYDROmorphone 0.5 MG/0.5 ML Syringe IVPUSH PRN (00:07)
[2022-06-26] MEDS ORDERED: hydrALAZINE 20 MG/ML SDV IVPUSH PRN (00:10)
[2022-06-26] MEDS ORDERED: Metoprolol Tartrate 5 MG/5 ML SDV IVPUSH PRN (00:11)
[2022-06-26] MEDS ORDERED: LORazepam 2 MG/ML SDV IVPUSH PRN ×2 (00:20→00:25)
[2022-06-26] MEDS ORDERED: Dextrose 5%-0.9% NaCl 1,000 ML IV SCH (00:30)
[2022-06-26] MEDS ORDERED: Metoclopramide 10 MG/2 ML SDV IVPUSH ONE (01:30)
[2022-06-26] MEDS ORDERED: Famotidine 20 MG/2 ML SDV IVPUSH ONE (01:30)
[2022-06-26] MEDS: Metoclopramide 10 MG/2 ML SDV IVPUSH SCH ×3 (06:26→17:50)
[2022-06-26 07:54] LABS: ANION GAP 12.8 mEq/L (7-13)
[2022-06-26] MEDS ORDERED: Nicotine 21 MG/24 Hr Patch TRDERM PRN (09:00)
[2022-06-26] MEDS ORDERED: Famotidine 20 MG/2 ML SDV IVPUSH SCH (09:00)
[2022-06-26] MEDS ORDERED: Metoprolol Succinate 50 MG Tab.ER PO SCH (09:00)
[2022-06-26] MEDS ORDERED: Tamsulosin 0.4 MG Cap.ER PO SCH (21:00)
== END 2022-06-26 19:00 | disposition home or self-care (01) | DRG 390 ==
LOC: DL.ED 20:41 → DL.MS 23:58
PROVIDERS: ADMIT Internal Medicine; ATTEND Internal Medicine
DX: K56.609 Unspecified intestinal obstruction, unspecified as to partial versus complete obstruction (principal); L02.211 Cutaneous abscess of abdominal wall; K57.90 Diverticulosis of intestine, part unspecified, without perforation or abscess without bleeding; K56.51 Intestinal adhesions [bands], with partial obstruction; R11.10 Vomiting, unspecified; D63.8 Anemia in other chronic diseases classified elsewhere; K21.9 Gastro-esophageal reflux disease without esophagitis; G25.81 Restless legs syndrome; G62.9 Polyneuropathy, unspecified; F41.9 Anxiety disorder, unspecified; Z20.822 Contact with and (suspected) exposure to COVID-19; N20.0 Calculus of kidney; R73.9 Hyperglycemia, unspecified; M19.90 Unspecified osteoarthritis, unspecified site; F17.210 Nicotine dependence, cigarettes, uncomplicated; F12.10 Cannabis abuse, uncomplicated; R26.89 Other abnormalities of gait and mobility; G47.00 Insomnia, unspecified; H54.7 Unspecified visual loss; I10 Essential (primary) hypertension; E78.5 Hyperlipidemia, unspecified; I71.40 Abdominal aortic aneurysm, without rupture, unspecified; R16.1 Splenomegaly, not elsewhere classified; E55.9 Vitamin D deficiency, unspecified; G89.29 Other chronic pain; M54.2 Cervicalgia; M54.9 Dorsalgia, unspecified; L21.9 Seborrheic dermatitis, unspecified; E78.00 Pure hypercholesterolemia, unspecified; N52.9 Male erectile dysfunction, unspecified; Z93.3 Colostomy status; Z79.82 Long term (current) use of aspirin; Z79.899 Other long term (current) drug therapy; Z87.442 Personal history of urinary calculi; Z86.19 Personal history of other infectious and parasitic diseases; Z90.89 Acquired absence of other organs
CPT/HCPCS: 36415; 74177; 80048; 80053; 80305-QW; 80307; 81001; 83605; 83690; 83735; 85025; 86140; 87040; A9270-GY; J1170; J1885; J2060; J2405; J2765; J3490; J7042; Q9967; U0002

== ENCOUNTER 2022-07-02 20:43 | Emergency (ER) | payer OTHER, MEDICARE ==
[2022-07-02] MEDS ORDERED: Sodium Chloride 0.9% 10 ML Syringe FLUSH PRN (21:04)
[2022-07-02] MEDS ORDERED: HYDROmorphone 0.5 MG/0.5 ML Syringe IVPUSH ONE (21:28)
[2022-07-02] MEDS ORDERED: Ondansetron 4 MG/2 ML SDV IVPUSH ONE (21:28)
[2022-07-02 21:39] LABS: ANION GAP 14.3 mEq/L (7-13)
[2022-07-02] MEDS ORDERED: Metoclopramide 10 MG/2 ML SDV IVPUSH ONE (21:50)
[2022-07-02] MEDS ORDERED: Iopamidol 612 MG/ML 100 ML Bottle IVPUSH ONE (21:55)
[2022-07-02] MEDS ORDERED: fentaNYL 100 MCG/2 ML SDV IVPUSH ONE (23:51)
== END 2022-07-03 00:06 | disposition home or self-care (01) ==
LOC: DL.ED 20:43
DX: K56.609 Unspecified intestinal obstruction, unspecified as to partial versus complete obstruction (principal); E78.00 Pure hypercholesterolemia, unspecified; I10 Essential (primary) hypertension; K21.9 Gastro-esophageal reflux disease without esophagitis; F17.210 Nicotine dependence, cigarettes, uncomplicated; Z79.82 Long term (current) use of aspirin; Z79.899 Other long term (current) drug therapy; Z20.822 Contact with and (suspected) exposure to COVID-19
CPT/HCPCS: 36415; 74177; 80053; 81003; 82150; 83605; 83690; 83735; 84145; 85025; 86140; 87635; 96374; 96375; 99285; J1170; J2405; J3010; J3490; Q9967; U0002

== ENCOUNTER 2022-07-03 16:39 | Emergency (ER) | payer OTHER, MEDICARE ==
[2022-07-03] MEDS ORDERED: Midazolam 1 MG/ML 2 ML SDV IVPUSH ONE (16:52)
[2022-07-03] MEDS ORDERED: Ondansetron 4 MG/2 ML SDV IV ONE (16:52)
[2022-07-03 17:27] LABS: ANION GAP 14.6 mEq/L (7-13)
[2022-07-03] MEDS ORDERED: Sodium Chloride 0.9% 1,000 ML IV ONE (17:56)
[2022-07-03] MEDS ORDERED: HYDROmorphone 1 MG/ML Syringe IVPUSH ONE (19:25)
== END 2022-07-03 19:38 ==
LOC: DL.ED 16:39
DX: K56.609 Unspecified intestinal obstruction, unspecified as to partial versus complete obstruction (principal); E78.00 Pure hypercholesterolemia, unspecified; I10 Essential (primary) hypertension; K21.9 Gastro-esophageal reflux disease without esophagitis; M19.90 Unspecified osteoarthritis, unspecified site; Z79.82 Long term (current) use of aspirin; Z79.899 Other long term (current) drug therapy
CPT/HCPCS: 36415; 43752; 74018; 80053; 82150; 83605; 83690; 85025; 86140; 96361; 96374; 96375; 99285; J1170; J2250; J2405; J7030

== ENCOUNTER 2022-08-03 21:18 | Emergency (ER) | payer MEDICARE, MEDICAID, OTHER ==
[2022-08-03] MEDS ORDERED: oxyCODONE 5 MG Tab PO ONE (21:19)
[2022-08-04] MEDS ORDERED: oxyCODONE 5 MG Tab PO ONE (00:10)
[2022-08-04] MEDS ORDERED: oxyCODONE 5 MG Tab ONE (00:47)
== END 2022-08-04 01:01 | disposition home or self-care (01) ==
LOC: DL.ED 21:18
DX: K62.89 Other specified diseases of anus and rectum (principal); E78.00 Pure hypercholesterolemia, unspecified; I10 Essential (primary) hypertension; K21.9 Gastro-esophageal reflux disease without esophagitis; M19.90 Unspecified osteoarthritis, unspecified site; Z72.0 Tobacco use; Z93.3 Colostomy status; Z98.890 Other specified postprocedural states; Z79.82 Long term (current) use of aspirin; Z79.899 Other long term (current) drug therapy
CPT/HCPCS: 99283; A9270

== ENCOUNTER 2022-08-15 15:25 | Emergency (ER) | payer MEDICARE, MEDICAID, OTHER ==
[2022-08-15] MEDS ORDERED: Acetaminophen/HYDROcodone 325-5 MG Tab PO ONE (15:26)
[2022-08-15] MEDS ORDERED: Acetaminophen/HYDROcodone 325-5 MG Tab ONE (20:10)
== END 2022-08-15 20:25 | disposition home or self-care (01) ==
LOC: DL.ED 15:25
DX: S32.020A Wedge compression fracture of second lumbar vertebra, initial encounter for closed fracture (principal); S32.010A Wedge compression fracture of first lumbar vertebra, initial encounter for closed fracture; S22.040A Wedge compression fracture of fourth thoracic vertebra, initial encounter for closed fracture; R91.1 Solitary pulmonary nodule; E78.00 Pure hypercholesterolemia, unspecified; I10 Essential (primary) hypertension; F17.210 Nicotine dependence, cigarettes, uncomplicated; Z79.82 Long term (current) use of aspirin; Z79.899 Other long term (current) drug therapy; W18.30XA Fall on same level, unspecified, initial encounter
CPT/HCPCS: 72125; 72128; 72131; 99283; A9270

== ENCOUNTER 2024-12-16 10:22 | Emergency (ER) | payer OTHER ==
[2024-12-16 11:26] LABS: BASOPHILS PERCENT AUTO 0.1 % (0.0-1.0); EOSINOPHILS PERCENT AUTO 0.9 % (1.0-3.0); HEMATOCRIT 42.2 % (40.0-54.0); HEMOGLOBIN 14.2 g/dL (14.0-18.0); LYMPHOCYTES PERCENT AUTO 7.7 % (20.5-50.1); MEAN CORPUSCULAR HEMOGLOBIN 30.5 pg (27.0-34.0); MEAN CORPUSCULAR HGB CONC 33.6 g/dL (33.0-35.0); MEAN CORPUSCULAR VOLUME 90.6 fL (80-100); MONOCYTES PERCENT AUTO 6.7 % (2-8); NEUTROPHILS PERCENT AUTO 84.6 % (42.2-75.2); PLATELET COUNT,PLT 164 10^3/uL (150-450); RED BLOOD CELL COUNT 4.66 10^6/uL (4.6-6.2); WHITE BLOOD CELL COUNT,WBC 10.8 10^3/uL (5.0-10.0)
[2024-12-16 11:42] LABS: INR 1.1 (0.9-1.2); PROTHROMBIN TIME 11.3 SEC (9.0-12.0)
[2024-12-16 11:51] LABS: BILIRUBIN TOTAL 1.3 mg/dL (0.2-1.0); BUN/CREATININE RATIO 7.9 (No establ ref range); CALCIUM 8.7 mg/dL (8.5-10.1); CREATININE 1.01 mg/dL (0.70-1.30); EST CRCL DRUG DOSING (CG) 73.63 mL/min; PROTEIN TOTAL,TP 7.7 g/dL (6.4-8.2)
[2024-12-16 11:56] LABS: A/G RATIO 0.64
== END 2024-12-16 12:38 | disposition home or self-care (01) ==
LOC: DL.ED 10:22
DX: J40 Bronchitis, not specified as acute or chronic (principal); I10 Essential (primary) hypertension; E78.00 Pure hypercholesterolemia, unspecified; K21.9 Gastro-esophageal reflux disease without esophagitis; F17.210 Nicotine dependence, cigarettes, uncomplicated; M19.90 Unspecified osteoarthritis, unspecified site; Z79.82 Long term (current) use of aspirin; Z79.899 Other long term (current) drug therapy; Z79.02 Long term (current) use of antithrombotics/antiplatelets; Z86.16 Personal history of COVID-19
CPT/HCPCS: 36415; 71045; 80053; 84484; 85025; 85610; 87428-QW; 93005; 93010; 99283; 99285